=== PATIENT | female | born 1965 | race African-American/Black ===

== ENCOUNTER 2023-04-22 14:37 | Inpatient (IN) | payer OTHER ==
[~2023-04-22] VITALS: Ht 152.4 cm; Wt 78.9 kg
[~2023-04-22 14:37] MED LIST: ALBU4TAB6 PO; BUDE6HFA INH; HYDR25TA PO
[2023-04-22] MEDS ORDERED: IPRATROPIUM BROMIDE (0.02%) 0.5MG/2.5ML NEB HHN STA (14:46)
[2023-04-22] MEDS ORDERED: METHYLPREDNISOLONE SOD SUCC 125MG/2ML (ACT-O-VIAL) IV STA (14:46)
[2023-04-22 14:53] VITALS: RESP 22
[2023-04-22] MEDS: ALBUTEROL (0.083%) 2.5MG/3ML NEB HHN SCH ×3 (14:53→15:43)
[2023-04-22] MEDS ORDERED: MAGNESIUM 2 G PREMIX 50 ML IV ONE (15:00)
[2023-04-22] MEDS ORDERED: METHYLPREDNISOLONE SOD SUCC 125MG VIAL IV NR (15:00)
[2023-04-22 15:31] LABS: BASOPHILS % 0.3 % (0.0-2.0); EOSINOPHILS % 0.2 % (0.0-5.0); HEMATOCRIT. 44.2 % (36.0-48.0); HEMOGLOBIN. 14.9 g/dL (12.0-16.0); LYMPHOCYTES % 15.1 % (20.0-50.0); MEAN CORPUSCULAR HEMOGLOBIN 30.6 pg (28.0-32.0); MEAN CORPUSCULAR HGB CONC 33.7 g/dL (31.0-37.0); MEAN CORPUSCULAR VOLUME 90.8 fL (81.0-99.0); MEAN PLATELET VOLUME 7.9 fl (7.4-10.4); NEUTROPHILS % 80.4 % (40.0-76.0); PLATELET 335 x1000/uL (130-400); RED BLOOD CELL COUNT 4.86 mill/uL (4.2-5.4); RED CELL DISTRIBUTION WIDTH 14.9 % (11.6-14.6); WHITE BLOOD COUNT 8.6 x1000/uL (4.5-11.0)
[2023-04-22 15:49] LABS: CHLORIDE 104 mEq/L (98-107); INDEX HEMOLYSI 3 (1-3); INDEX ICTERIC 1 (1-4); INDEX LIPEMIC 1 (1-3); POTASSIUM 3.6 mEq/L (3.5-5.1); SODIUM 138 mEq/L (136-145)
[2023-04-22 15:58] LABS: ALBUMIN 3.9 g/dL (3.4-5.0); ASPARTATE AMINOTRANSFERASE 18 IU/L (15-37); BILIRUBIN TOTAL 0.4 mg/dL (0.1-1.0); CARBON DIOXIDE 24 mEq/L (21-32); CREATININE 0.9 mg/dL (0.6-1.3); GLUCOSE 205 mg/dL (70-105); PROTEIN TOTAL 7.5 g/dL (6.0-8.3); TROPONIN I HIGH SENSITIVITY 11 ng/L (<54); UREA NITROGEN BLOOD 12 mg/dL (7-21)
[2023-04-22 16:25] LABS: ALANINE AMINOTRANSFERASE 41 IU/L (13-61); CALCIUM 8.7 mg/dL (8.5-10.1)
[2023-04-22 17:00] VITALS: RESP 24
[2023-04-22 21:20] VITALS: BP 104/68; PULSE 116; RESP 19; TEMP 97.4
[2023-04-22 21:40] VITALS: PULSE 104; RESP 20
[2023-04-22] MEDS: IPRATROPIUM/ALBUTEROL 0.5-3(2.5)MG/3ML NEB HHN SCH (21:42)
[2023-04-22 21:45] VITALS: BP 104/68; PULSE 116; RESP 19; TEMP 97.4
[2023-04-22] MEDS ORDERED: ASPI-1497 PO (23:05)
[2023-04-22] MEDS ORDERED: MELA5TAB19 PO (23:05)
[2023-04-22] MEDS ORDERED: TEMAZEPAM 15MG CAPSULE PO PRN (23:45)
[2023-04-22] MEDS ORDERED: ACETAMINOPHEN 325MG TABLET PO PRN (23:45)
[2023-04-23] VITALS (10 sets, daily range): BP systolic 103–128; BP diastolic 51–81; PULSE 66–107; RESP 16–22; TEMP 96.5–98.5; O2SAT 94
[2023-04-23] MEDS: IPRATROPIUM/ALBUTEROL 0.5-3(2.5)MG/3ML NEB HHN SCH ×6 (00:01→21:07)
[2023-04-23] MEDS: SODIUM CHLORIDE 0.9% 1,000 ML IV SCH ×2 (00:25→12:40)
[2023-04-23] MEDS: METHYLPREDNISOLONE SOD SUCC 40MG VIAL IV SCH ×4 (00:25→21:56)
[2023-04-23] MEDS: PANTOPRAZOLE 40MG DR TABLET PO SCH (08:10)
[2023-04-23] MEDS: ENOXAPARIN 40MG/0.4ML SYR SUBCUT SCH (08:19)
[2023-04-23] MEDS ORDERED: LEVOFLOXACIN 500MG TABLET PO SCH (11:00)
[2023-04-23] MEDS ORDERED: DEXTROSE 50% WATER 50ML SYRINGE IV PRN (11:45)
[2023-04-23] MEDS ORDERED: ACETAMINOPHEN 325MG TABLET PO PRN (11:45)
[2023-04-23] MEDS ORDERED: IPRATROPIUM/ALBUTEROL 0.5-3(2.5)MG/3ML NEB HHN PRN (11:45)
[2023-04-23] MEDS ORDERED: CLONIDINE 0.1MG TABLET PO PRN (11:45)
[2023-04-23] MEDS ORDERED: ONDANSETRON HCL 4MG/2ML INJ IV PRN (11:45)
[2023-04-23] MEDS ORDERED: DOCUSATE SODIUM 100MG CAPSULE PO PRN (11:45)
[2023-04-23] MEDS: BLOOD SUGAR DIAGNOSTIC STRIP TEST SCH ×3 (12:10→21:03)
[2023-04-23] MEDS: INSULIN LISPRO 100 UNITS/ML SUBCUT SCH ×3 (12:40→21:00)
[2023-04-23 12:49] LABS: BG CARBOXYHEMOGLOBIN 0.2 % (0.5-1.5); BG DEOXYHEMOGLOBIN 5.4 % (0.0-5.0); BG FRACTION INSPIRED OXYGEN 21; BG HCO3 ACT 26.1 mmol/L (22.0-26.0); BG METHEMOGLOBIN 0.1 % (0.0-1.5); BG OXYGEN SATURATION 94.6 % (92.0-98.5); BG OXYHEMOGLOBIN 94.3 % (94.0-97.0); BG PCO2 39.2 mmHg (35.0-45.0); BG PH 7.441 (7.350-7.450); BG PO2 70.7 mmHg (75.0-100.0); BG SAMPLE SITE RIGHT RADIAL; BG TOTAL HEMOGLOBIN 14.7 g/dL (12.0-18.0); BG VENT MODE ROOM AIR
[2023-04-23 14:02] LABS: HEMATOCRIT. 41.3 % (36.0-48.0); HEMOGLOBIN. 13.7 g/dL (12.0-16.0); MEAN CORPUSCULAR HEMOGLOBIN 30.2 pg (28.0-32.0); MEAN CORPUSCULAR HGB CONC 33.1 g/dL (31.0-37.0); MEAN CORPUSCULAR VOLUME 91.4 fL (81.0-99.0); MEAN PLATELET VOLUME 7.7 fl (7.4-10.4); PLATELET 289 x1000/uL (130-400); RED BLOOD CELL COUNT 4.52 mill/uL (4.2-5.4); RED CELL DISTRIBUTION WIDTH 14.6 % (11.6-14.6); WHITE BLOOD COUNT 14.9 x1000/uL (4.5-11.0)
[2023-04-23 14:03] LABS: DIFFERENTIAL COMMENT 1
[2023-04-23 14:13] LABS: CHLORIDE 105 mEq/L (98-107); INDEX HEMOLYSI 1 (1-3); INDEX ICTERIC 1 (1-4); INDEX LIPEMIC 1 (1-3); POTASSIUM 3.6 mEq/L (3.5-5.1); SODIUM 140 mEq/L (136-145)
[2023-04-23 14:22] LABS: CALCIUM 9.4 mg/dL (8.5-10.1); CARBON DIOXIDE 28 mEq/L (21-32); CHOLESTEROL 227 mg/dL (<200); CREATININE 0.6 mg/dL (0.6-1.3); GLUCOSE 110 mg/dL (70-105); HDL CHOLESTEROL 87 mg/dL (40-59); LDL CHOLESTEROL 126 mg/dL (5-100); TRIGLYCERIDE 70 mg/dL (0-150)
[2023-04-23] MEDS: DILTIAZEM HCL 30MG TABLET PO SCH ×2 (15:04→21:55)
[2023-04-23] MEDS ORDERED: GUAIFENESIN-DM 200MG-20MG/10ML UDC PO PRN (15:30)
[2023-04-23 15:40] LABS: UREA NITROGEN BLOOD 12 mg/dL (7-21)
[2023-04-23 16:10] LABS: *AMPHETAMINES SCREEN URINE NEGATIVE (NEGATIVE); *BARBITURATES SCREEN URINE NEGATIVE (NEGATIVE); *BENZODIAZEPINES SCREEN URINE NEGATIVE (NEGATIVE); *COCAINE SCREEN URINE NEGATIVE (NEGATIVE); CANNABINOID URINE SCREEN NEGATIVE (NEGATIVE); ECSTASY MDMA SCREEN URINE NEGATIVE (NEGATIVE); METHADONE URINE SCREEN NEGATIVE (NEGATIVE); OPIATES URINE SCREEN NEGATIVE (NEGATIVE); PHENCYCLIDINE URINE SCREEN NEGATIVE (NEGATIVE)
[2023-04-23 16:48] LABS: PLATELET ESTIMATE NORMAL
[2023-04-23] MEDS: ATORVASTATIN CALCIUM 40MG TABLET PO SCH (21:00)
[2023-04-23] MEDS: GUAIFENESIN 600MG ER TABLET PO SCH (21:02)
[2023-04-24] VITALS (14 sets, daily range): BP systolic 99–144; BP diastolic 53–80; PULSE 64–106; RESP 18–20; TEMP 97.5–98.7; O2SAT 94–95
[2023-04-24] MEDS: IPRATROPIUM/ALBUTEROL 0.5-3(2.5)MG/3ML NEB HHN SCH ×7 (00:22→23:49)
[2023-04-24] MEDS: DILTIAZEM HCL 30MG TABLET PO SCH ×3 (05:33→21:26)
[2023-04-24] MEDS: METHYLPREDNISOLONE SOD SUCC 40MG VIAL IV SCH ×3 (05:33→21:32)
[2023-04-24] MEDS: PANTOPRAZOLE 40MG DR TABLET PO SCH (06:39)
[2023-04-24] MEDS: INSULIN LISPRO 100 UNITS/ML SUBCUT SCH ×4 (06:39→21:00)
[2023-04-24] MEDS: BLOOD SUGAR DIAGNOSTIC STRIP TEST SCH ×4 (06:39→21:00)
[2023-04-24] MEDS: ENOXAPARIN 40MG/0.4ML SYR SUBCUT SCH (08:04)
[2023-04-24] MEDS: GUAIFENESIN 600MG ER TABLET PO SCH ×2 (08:04→21:31)
[2023-04-24] MEDS: BUDESONIDE 0.5MG/2ML NEB HHN SCH ×2 (09:08→20:06)
[2023-04-24] MEDS: SODIUM CHLORIDE 0.9% 1,000 ML IV SCH (11:30)
[2023-04-24] MEDS: LEVOFLOXACIN 250MG TABLET PO SCH (11:30)
[2023-04-24 11:37] LABS: HEMATOCRIT. 42.1 % (36.0-48.0); HEMOGLOBIN. 13.8 g/dL (12.0-16.0); MEAN CORPUSCULAR HEMOGLOBIN 30.1 pg (28.0-32.0); MEAN CORPUSCULAR HGB CONC 32.7 g/dL (31.0-37.0); MEAN CORPUSCULAR VOLUME 92.1 fL (81.0-99.0); MEAN PLATELET VOLUME 7.8 fl (7.4-10.4); PLATELET 312 x1000/uL (130-400); RED BLOOD CELL COUNT 4.57 mill/uL (4.2-5.4); RED CELL DISTRIBUTION WIDTH 14.9 % (11.6-14.6); WHITE BLOOD COUNT 14.4 x1000/uL (4.5-11.0)
[2023-04-24 11:38] LABS: DIFFERENTIAL COMMENT 1
[2023-04-24 12:23] LABS: CHLORIDE 102 mEq/L (98-107); INDEX HEMOLYSI 1 (1-3); INDEX ICTERIC 1 (1-4); INDEX LIPEMIC 1 (1-3); POTASSIUM 3.5 mEq/L (3.5-5.1); SODIUM 138 mEq/L (136-145)
[2023-04-24 12:31] LABS: CALCIUM 9.1 mg/dL (8.5-10.1); CARBON DIOXIDE 25 mEq/L (21-32); CREATININE 0.6 mg/dL (0.6-1.3); GLUCOSE 130 mg/dL (70-105); UREA NITROGEN BLOOD 14 mg/dL (7-21)
[2023-04-24 16:37] LABS: PLATELET ESTIMATE NORMAL
[2023-04-24] MEDS: ATORVASTATIN CALCIUM 40MG TABLET PO SCH (21:00)
[2023-04-25] VITALS (11 sets, daily range): BP systolic 116–156; BP diastolic 71–89; PULSE 60–103; RESP 17–21; TEMP 97–98.8; O2SAT 94–99
[2023-04-25] MEDS: IPRATROPIUM/ALBUTEROL 0.5-3(2.5)MG/3ML NEB HHN SCH ×5 (03:58→20:39)
[2023-04-25] MEDS: DILTIAZEM HCL 30MG TABLET PO SCH ×3 (06:12→21:18)
[2023-04-25] MEDS: PANTOPRAZOLE 40MG DR TABLET PO SCH (06:12)
[2023-04-25] MEDS: METHYLPREDNISOLONE SOD SUCC 40MG VIAL IV SCH ×3 (06:12→21:14)
[2023-04-25] MEDS: BLOOD SUGAR DIAGNOSTIC STRIP TEST SCH ×4 (06:29→20:42)
[2023-04-25] MEDS: INSULIN LISPRO 100 UNITS/ML SUBCUT SCH ×4 (06:54→20:42)
[2023-04-25] MEDS: BUDESONIDE 0.5MG/2ML NEB HHN SCH ×2 (07:45→20:39)
[2023-04-25] MEDS: GUAIFENESIN 600MG ER TABLET PO SCH ×2 (08:04→21:18)
[2023-04-25] MEDS: ENOXAPARIN 40MG/0.4ML SYR SUBCUT SCH (08:05)
[2023-04-25] MEDS: LEVOFLOXACIN 250MG TABLET PO SCH (11:30)
[2023-04-25 12:44] LABS: HEMATOCRIT. 41.8 % (36.0-48.0); HEMOGLOBIN. 13.5 g/dL (12.0-16.0); MEAN CORPUSCULAR HEMOGLOBIN 29.8 pg (28.0-32.0); MEAN CORPUSCULAR HGB CONC 32.3 g/dL (31.0-37.0); MEAN CORPUSCULAR VOLUME 92.1 fL (81.0-99.0); MEAN PLATELET VOLUME 7.6 fl (7.4-10.4); PLATELET 298 x1000/uL (130-400); RED BLOOD CELL COUNT 4.54 mill/uL (4.2-5.4); RED CELL DISTRIBUTION WIDTH 14.7 % (11.6-14.6); WHITE BLOOD COUNT 13.6 x1000/uL (4.5-11.0)
[2023-04-25 12:45] LABS: DIFFERENTIAL COMMENT 1
[2023-04-25 13:08] LABS: CHLORIDE 106 mEq/L (98-107); INDEX HEMOLYSI 1 (1-3); INDEX ICTERIC 1 (1-4); INDEX LIPEMIC 1 (1-3); POTASSIUM 3.5 mEq/L (3.5-5.1); SODIUM 140 mEq/L (136-145)
[2023-04-25 13:15] LABS: CALCIUM 8.7 mg/dL (8.5-10.1); CARBON DIOXIDE 27 mEq/L (21-32); CREATININE 0.6 mg/dL (0.6-1.3); GLUCOSE 154 mg/dL (70-105); UREA NITROGEN BLOOD 13 mg/dL (7-21)
[2023-04-25] MEDS: SODIUM CHLORIDE 0.9% 1,000 ML IV SCH (13:26)
[2023-04-25 15:02] LABS: PLATELET ESTIMATE NORMAL
[2023-04-25] MEDS: ATORVASTATIN CALCIUM 40MG TABLET PO SCH (20:42)
[2023-04-26] VITALS (7 sets, daily range): BP systolic 118–135; BP diastolic 77–85; PULSE 83–103; RESP 20–24; TEMP 97.5–97.6; O2SAT 96–99
[2023-04-26] MEDS: IPRATROPIUM/ALBUTEROL 0.5-3(2.5)MG/3ML NEB HHN SCH ×5 (00:07→16:35)
[2023-04-26] MEDS: DILTIAZEM HCL 30MG TABLET PO SCH ×2 (06:10→15:25)
[2023-04-26] MEDS: INSULIN LISPRO 100 UNITS/ML SUBCUT SCH ×2 (06:11→12:40)
[2023-04-26] MEDS: BLOOD SUGAR DIAGNOSTIC STRIP TEST SCH ×2 (06:11→12:10)
[2023-04-26] MEDS: METHYLPREDNISOLONE SOD SUCC 40MG VIAL IV SCH (06:11)
[2023-04-26] MEDS: ENOXAPARIN 40MG/0.4ML SYR SUBCUT SCH (09:00)
[2023-04-26] MEDS ORDERED: FAMOTIDINE 20MG TABLET PO SCH (09:00)
[2023-04-26] MEDS: BUDESONIDE 0.5MG/2ML NEB HHN SCH (09:40)
[2023-04-26] MEDS: GUAIFENESIN 600MG ER TABLET PO SCH (09:59)
[2023-04-26] MEDS: LEVOFLOXACIN 250MG TABLET PO SCH (11:36)
[2023-04-26] MEDS: SODIUM CHLORIDE 0.9% 1,000 ML IV SCH (12:40)
[2023-04-27] MEDS ORDERED: METHYLPREDNISOLONE SOD SUCC 40MG VIAL IV SCH (09:00)
== END 2023-04-26 17:15 | disposition home or self-care (01) | DRG 202 ==
LOC: ER 14:38 → 8WST 16:53 → EDBEDREQSVC 20:30 → 8WST 21:45
PROVIDERS: ADMIT Internal Medicine; ATTEND Internal Medicine
PROC: 5A09357 Assistance with Respiratory Ventilation, Less than 24 Consecutive Hours, Continuous Positive Airway Pressure (ICD-10-PCS; principal; 2023-04-22)
DX: J45.901 Unspecified asthma with (acute) exacerbation (principal); J44.1 Chronic obstructive pulmonary disease with (acute) exacerbation; R73.9 Hyperglycemia, unspecified; D72.829 Elevated white blood cell count, unspecified; I10 Essential (primary) hypertension; F17.210 Nicotine dependence, cigarettes, uncomplicated; E78.5 Hyperlipidemia, unspecified; Z79.82 Long term (current) use of aspirin; Z79.899 Other long term (current) drug therapy
CPT/HCPCS: 36415; 36600; 71045; 80048; 80053; 80061; 80305; 82375; 82805; 82962; 83036; 84484; 85025; 85379; 93306; 93880; 94640; 94660; 94664; 99285; J1650; J2920; J2930; J3475; J7030; J7626